=== PATIENT | female | born 1945 | race Caucasian/White ===

== ENCOUNTER 2016-11-24 22:39 | Emergency (ER) | payer MEDICARE ==
--- NOTE | 2016-11-28 11:58 | ER ---
ADMIT: 11/24/2016 RM/LOC: ER [facility] MR#: [id number] [address] [id number] ELHAM RAMIREZ [address] [place] [address] Emergency Room Report SEX: F AGE: 71 : 1945 DATE: 11/24/2016 SUBJECTIVE: The patient is a 71-year-old female with a past medical history of hypertension, who came to the ER with a chief complaint of epigastric pain, which started about an hour before coming to hospital. Pain had a gradual onset and it is better at the moment. The patient states she had similar pain a few days back. The patient denies any nausea or vomiting and states the pain started during the time that she was eating [employer]. The patient had normal bowel movement today and passed gas after that. The patient denies any nausea or vomiting. The patient denies any chest pain, shortness of breath, headaches, numbness, or weakness. PHYSICAL EXAMINATION: GENERAL: The patient was in mild distress. Vitals are normal except for mild bradycardia with heart rate of 58. HEAD AND NECK: Normal. LUNGS: Clear. HEART: Normal cardiac sounds without any gallops. There are no murmurs. ABDOMEN: Soft and nontender. No CVA tenderness. Rest of the physical examination is normal. EXTREMITIES: There is no extremity tenderness or swelling. EKG showed sinus bradycardia with a heart rate of 55. The patient received GI cocktail and morphine, which controlled the pain effectively. The pain was resolved. Lab works were noncontributory and negative. Bedside ultrasound by ER physician, showed normal kidneys and I did not see any gallstone and the gallbladder wall was not thickened, although the examination was limited by the body habitus. With the diagnosis of abdominal pain resolved, the patient was discharged to home to follow up with the primary doctor, Dr. Antonio as needed as scheduled. Gabe Harry MD/ jerry JOB #: [id number] CC: Gabe Harry MD, Attending Physician Jonathan Antonio MD, Family Physician
== END 2016-11-25 00:55 | disposition home or self-care (01) ==
LOC: ER 22:39
DX: R10.13 Epigastric pain (principal); I10 Essential (primary) hypertension; Z79.899 Other long term (current) drug therapy